=== PATIENT | male | born 2000 | race Caucasian/White ===

== ENCOUNTER → 2019-08-09 12:15 | Outpatient (CLI) | payer OTHER, SELFPAY ==
[2019-08-09 13:50] LABS: Estimated Glomerular Filt Rate > 60.0 mL/min (>60); HEMOLYSIS < 15 (0-50); Potassium 4.3 mmol/L (3.4-5.1)
== END ==
PROVIDERS: Family Provider Pediatrics; PCP Family Medicine; Referring Provider Family Medicine; Visit Provider Family Medicine
DX: Z79.890 Hormone replacement therapy (principal)
CPT/HCPCS: 36415; 82565; 84132